=== PATIENT | male | born 2000 | race Caucasian/White ===

== ENCOUNTER 2023-08-23 11:50 | Emergency (ER) | payer SELFPAY ==
[2023-08-23 11:51] VITALS: BP 176/87; PULSE 84; RESP 18; TEMP 36.3; O2SAT 100; BMI 28.2
[2023-08-23 12:16] LABS: Absolute Lymphocyte Count 1.77 X10^3/uL (0.83-4.51); Absolute Neutrophil Count 1.5 X10^3/uL (2.0-7.7); Basophil# 0.02 X10^3/uL; Basophil% 0.5 % (0-1); Eosinophil# 0.08 X10^3/uL; Eosinophils% 2.2 % (0-5); Hematocrit 43.1 % (40-54); Hemoglobin 14.7 g/dL (13.0-16.5); Lymphocyte # 1.77 X10^3/ul (0.83-4.51); Lymphocyte % 48.6 % (19-41); Mean Corp Hgb Conc 34.1 g/dL (32-36); Mean Corpuscular Hgb 29.3 pg (27.0-32.0); Mean Corpuscular Volume 85.9 fL (80-94); Mean Platelet Vol. 9.5 fl (6.2-12.0); Monocyte% 8.2 % (0-10); NRBC Flagged by Analyzer 0 % (0-5); Neutrophil # 1.46 X10^3/uL (2.7-7.7); Neutrophil % 40.2 % (47-70); Platelet Count 250 K/mm3 (150-450); RBC Distribution Width CV 11.9 % (11.6-14.6); RBC Distribution Width SD 37.2 fl (35.1-43.9); Red Blood Count 5.02 M/mm3 (4.6-6.2); White Blood Count 3.6 K/mm3 (4.4-11.0)
[2023-08-23 12:34] LABS: Anion Gap 3 (5-15); BUN 13 mg/dL (7-18); BUN/Creat Ratio 14.2 RATIO (10-20); Calcium,Total 9.5 mg/dL (8.5-10.1); Chloride 107 mmol/L (98-107); Creatinine, Serum 0.91 mg/dL (0.70-1.30); EST Glomerular Filtration Rate 109 mL/min (>60); Est Glom Filt Rate - Afr Amer 132 mL/min (>60); Estimated Creatinine Clearance 126.68 ml/min; Glucose 107 mg/dL (74-106); Potassium 3.7 mmol/L (3.5-5.1); Sodium Level 136 mmol/L (136-145); Troponin-I HS (w/2H Reflex) 5 pg/mL (3.0-78.0)
--- NOTE | 2023-08-23 13:11 | NURSING ---
NO OLD EKGS
--- NOTE | 2023-08-23 13:21 | RAD_ITS ---
STUDY: X-RAY CHEST REASON FOR EXAM: Male, 23 years old. Chest pain TECHNIQUE: Single AP portable view of the chest. COMPARISON: None. FINDINGS: EKG electrodes are seen. The lungs are clear and expanded. There is no demonstrated pleural abnormality. Normal size heart. Normal mediastinum and maggie. Normal visualized pulmonary arteries. Normal visualized aortic arch and descending thoracic aorta. Normal visualized thoracic spine. Normal visualized ribs, clavicles, and shoulders. There is no demonstrated abnormality of the visualized soft tissue structures of the upper abdomen. RAD/Chest 1 View (Portable) IMPRESSION: Normal x-ray examination of the chest. Electronically Signed: Rocco Jurado MD at 14:22 EST ,
[2023-08-23 13:26] VITALS: BP 141/79; PULSE 82; RESP 17; O2SAT 99
[2023-08-23 14:11] LABS: Reflex Troponin-HS? (from REC) Y
--- NOTE | 2023-08-23 14:11 | EDS_ITS ---
HPI History of Present Illness Chief Complaint: Chest Pain Informant: patient Onset/Context/Timing Onset: Today and - (Episodes occurring for last 1-1/2 years.) Activity at onset: sudden Timing: Intermittent Quality: Positive for Aching Location: Substernal Current Severity: Gone Maximum Severity: Moderate Worsened By: Nothing Relieved By: Nothing Associated Symptoms: Negative for Nausea, Vomiting, Diaphoresis, Dyspnea, Cough, Fever, Lightheadedness, Acid Reflux or Palpitations Narrative Narrative: 23-year-old male no seen past medical history. For the last 1 to 2 years has had intermittent episodes where gets chest pain that lasts 5 to 10 seconds. And then goes away. Today had a significant episode at work. First 1 lasted 3 to 5 seconds and then it went away and then it came back stronger and now is resolved. This occurred around 930 this morning. No associated shortness of breath. No fever or chills. No cough. No recent exertional symptoms. No history of DVT or PE. No leg pain or swelling. No hemoptysis. Has had no recent hospitalization. Prior Similar Symptoms: Yes Recent Illness/Hospitalization: No CVD Risk Factors: Negative for Hypertension, Diabetes, Hypercholesterolemia, Family History 1' </=55 or Smoking PE Risk Factors: Negative for Recent Travel/Surgery, Recent Immobilization, Prior DVT or PE, Cancer or OCP + Smoking + >/=35 TAD Risk Factors: Negative for Marfan's Syndrome PFSH PFSH Medical History no medical history Home Medications doxycycline hyclate 100 mg capsule 100 mg PO Q12H #14 caps 12/09/21 [Rx Last Taken Unknown] Allergy/AdvReac Type Severity Reaction Status Date / Time No Known Allergies Allergy Verified 08/23/23 11:50 Family History no significant family his Surgical History History of ankle surgery Surgical History no surgical history Social History Smoking Status: Never smoker Electronic Cigarette Use: with nicotine ROS ROS ED ROS Narrative Intermittent chest pain resolved currently. Review of Systems ROS Unobtainable: Denies due to encephalopathy Constitutional Constitutional ED: Denies chills or fever(s) Eyes Eyes: Reports none ENT ENT ED: Denies ear pain Cardiovascular Cardiovascular: Reports as per HPI and chest pain; Denies palpitations or racing heartbeat Respiratory/Chest Respiratory/Chest: Denies cough or dyspnea Gastrointestinal Gastrointestinal: Denies abdominal pain, constipation, diarrhea, melena, nausea or vomiting Genitourinary Genitourinary ED: Denies dysuria or hematuria Musculoskeletal Musculoskeletal: Denies arthralgias, back pain, myalgias or neck pain Integumentary Denies abscess or Abrasions Psychiatric Psychiatric: Denies anxiety or depression Endocrine Endocrinology: Denies cold intolerance Hematologic/Lymphatic Hematologic/Lymphatic: Denies easy bleeding, easy bruising or lymphadenopathy Allergic/Immunologic Allergic/Immunologic ED: Denies mouth swelling, tongue swelling or urticaria EXAM Physical Exam Narrative Exam Narrative: 23-year-old male vital signs stable afebrile. Pulse ox 100% on room air no signs hypoxia. Initial pressure 176/87. Repeat 141/79. Pain-free. HEENT exam unremarkable. Neck nontender no JVD. Lungs clear to auscultation. Heart regular rhythm no murmur. Rate about 80. Chest wall nontender. Abdomen soft nontender. Moving all 4 extremities. Calves are nontender without edema or cords. Equal symmetrical radial pulses. Neurologically is awake and alert. Back nontender. Benign normal exam. Const Vital Signs: 08/23/23 11:51 08/23/23 13:26 08/23/23 13:26 Temperature 97.3 F L Temperature Source Temporal Pulse Rate 84 82 Respiratory Rate 18 17 Blood Pressure 176/87 H 141/79 H Blood Pressure Mean 116 99 Pulse Ox 100 99 Oxygen Delivery Method Room Air Room Air Room Air Positive well nourished; Negative for cachectic, contractures or unkempt General Appearance ED: NAD; Negative for unkempt, cachectic, contractures or pallor Nutritional Appearance: Negative for cachectic HEENT Reports moist mucous membranes; Denies dry mucous membranes normocephalic and atraumatic; Negative for trauma or tenderness Mouth ED: No dry mucous membranes Mouth: No dry mucous membranes Eyes EOMs intact bilaterally General Eye ED: Negative for pale conjunctiva, scleral icterus or other Neck no lymphadenopathy, supple and no JVD General: Negative for tenderness Chest Wall inspection of chest normal and palpation of chest normal Resp normal respiratory effort and clear to auscultation bilaterally Effort and Inspection: Negative for respiratory distress Auscultation: Negative for rales, rhonchi or wheezes Cardio regular rhythm, S1 normal heart sound, S2 normal heart sound and no murmurs Rate: Negative for bradycardia or tachycardic Rhythm: Negative for abnormal rhythm Peripheral Pulses: pulses 2+ throughout GI normal to inspection, nondistended, normoactive bowel sounds, soft to palpation, non-tender, non-distended and no masses Back/Spine no CVA tenderness and no thoracic nor lumbar tenderness General Back: Negative for CVA tenderness Cervical Spine: Negative for cervical spine tenderness Extremity normal to inspection General Extremety ED: Negative for edema, pulses abnormal or tenderness General Extremity: Negative for edema or pulses abnormal Neuro oriented x3 and CN's II-XII intact bilaterally Sensorium / Orientation: awake, alert, oriented to person, oriented to place and oriented to time; Negative for confused, lethargic or stuporous Motor Exam: strength 5/5 throughout; Negative for general weakness or strength abnormal Psych mental status grossly normal Appearance: Negative for unkempt Attitude: No agitated Mood & Affect: Negative for depressed, anxious or tearful Skin no rashes or lesions noted and no wounds General Skin Exam: Negative for jaundice or pallor Rashes: No rashes noted Trauma: Negative for abrasion, laceration or puncture Heart Score History: Slightly/Non-Suspicious ECG: Normal Age: </= 45 years Risk Factors: No Risk Factors Troponin: </= Normal Limit Score: 0 MDM MDM MDM Narrative Medical decision making narrative: 23-year-old male with atypical nonexertional chest pain with no DVT or PE history or significant risk factors. He is adopted so does not know his family history. Is a normal exam and a normal cardiac workup. His pressures do run high he will need to follow-up with his primary care physician to determine if he needs to be started on blood pressure medication or if this is secondary to whitecoat syndrome. He is in a log of his pressures at home over the next week and follow-up. History & Record Review Discussion w/independent historian: Patient Additional record(s) reviewed:: Prior inpatient record, Prior outpatient record, Prior ED visit and Prior labs Lab Data Attestation: I reviewed the patient's lab results. Lab results narrative: CBC normal. White count of 3 H&H of 14 and 43. Platelets 250. Electrolytes unremarkable gap of 3. Normal BUN and creatinine. Glucose of 107. Troponin of 5. Chest x-ray normal. EKG normal. Labs: Laboratory Results - last 24 hr 08/23/23 12:00 WBC 3.6 L RBC 5.02 Hgb 14.7 Hct 43.1 MCV 85.9 MCH 29.3 MCHC 34.1 RDW Std Deviation 37.2 RDW Coeff of Serena 11.9 Plt Count 250 MPV 9.5 Immature Gran % (Auto) 0.300 Neut % (Auto) 40.2 L Lymph % (Auto) 48.6 H Payette % (Auto) 8.2 Eos % (Auto) 2.2 Baso % (Auto) 0.5 Absolute Neuts (auto) 1.5 L Absolute Lymphs (auto) 1.77 Nucleated RBC % 0 Sodium 136 Potassium 3.7 Chloride 107 Carbon Dioxide 26.0 Anion Gap 3 L BUN 13 Creatinine 0.91 Estim Creat Clear Calc 126.68 Est GFR (MDRD) Af Amer 132 Est GFR (MDRD) Non-Af 109 BUN/Creatinine Ratio 14.2 Glucose 107 H Calcium 9.5 Troponin I High Sens 5 Radiography Chest X-Ray - ED: 1 View, Read by ED Physician, Lungs, Mediastinum, Bony Structures and No Acute Disease Diagnostic Testing: Chest x-ray, portable, single view interpreted by myself shows no acute abnormality. Normal cardiac silhouette. Normal mediastinum. Normal lung cummings. Rhythm Strip Rhythm Strip: Sinus Rhythm Rate: 86 Ectopy: None EKG Initial EKG: Attestation: I personally reviewed and interpreted this EKG as follows: Interpretation: Sinus Rhythm and No Acute Injury Pattern Comments: Normal sinus rhythm rate 86 no acute signs of HI or ischemia. Discharge Plan Triage Chief Complaint: Chest Pain ED Provider: Damián Hernandez Dx/Rx/DC Orders Clinical Impression: Chest pain Instructions: ED Chest Pain, Uncertain Cause Prescriptions: No Action doxycycline hyclate 100 mg capsule 100 mg PO Q12H Qty: 14 0RF Primary Care Provider: Filipe Tovar Referrals: Filipe Tovar MD [Primary Care Provider] - 1-2 Weeks Activity Restrictions/Additional Instructions: No specific cause for your chest pain today. Your EKG, chest x-ray and labs are normal. Does not sound cardiac. Does not sound like a blood clot. It could be spasm of your esophagus Follow-up with your doctor. I would log your blood pressures twice a day when you are calm and relaxed over the next 1 week and then follow-up with your doctor to see if there consistently elevated if so they may need to consider starting you on a blood pressure medication. Disposition Disposition: Home, Self Care
--- OUTSIDE RECORDS SUMMARY | 2023-08-23 15:10 | XMS RPT_ITS | CCD ---
Author Name Unknown Address [facility] [address] [place] [address] Organization [facility] Care Team Providers Care Equipment Cleaner And Tester Name Role Phone KATELIN [facility] Admitting Unavaila nicky THOMASON, [facility] Attending Unavaila nicky THOMASON, [facility] Primary Care Unavaila ble [facility], [facility] Consulting Unavailable PROVIDER, UNKNOWN Consulting Unavailable PROVIDER, UNKNOWN Consulting Unavailable PROVIDER, UNKNOWN Consulting Unavailable Allergies Allergy Classification Reported Allergen(s) Allergy Type Date of Onset Reaction(s) Facility (1 source) 08/09/15 (+) MRSA WOUND; Translations: [08/09/15 (+) MRSA WOUND] Propensity to adverse reactions (disorder) [facility] Repository Results Test Name Value Interpretation Reference Range Facil ity Encounters Encounter Date Encounter Type Care Provider Facility Start: 08-07-2019 End: 08-07-2019 [address] procedure [facility] Summary Purpose Family History No Family History Records FoundNo Family History Records Found Advance Directives No Advanced Directives Records FoundNo Advanced Directives Records Found Additional Source Comments (unrecognized sect ion and content) No Status Records FoundNo Status Records Found INFORMATION SOURCE (unrecogn ized section and content) DATE CREATED AUTHOR AUTHOR'S ORGANIZ ATION 08/07/2019 [facility] FOR RECORDS PERTAINING TO PATIENTS WHO ARE OR HAVE BEEN ENROLLED IN A CHEMICAL DEPENDENCY/SUBSTANCEABUSE PROGRAM, SOME INFORMATION MAY BE OMITTED. This clinical summary was aggregated from multiple sources. Caution should be exercised in using it in the provision of clinical care. This summary normalizes information from multiple sources, and as a consequence, information in this document may materially change the coding, format and clinical context of patient data. In addition, data may be omitted in some cases. CLINICAL DECISIONS SHOULD BE BASED ON THE PRIMARY CLINICAL RECORDS. [facility]. provides no warranty or guarantee of the accuracy or completeness of information in this document.
== END 2023-08-23 14:21 | disposition home or self-care (01) ==
LOC: ED 14:17
PROVIDERS: Emergency Provider Emergency Medicine; PCP Family Medicine; Visit Provider Emergency Medicine
DX: R07.89 Other chest pain (principal); R03.0 Elevated blood-pressure reading, without diagnosis of hypertension; F17.290 Nicotine dependence, other tobacco product, uncomplicated
CPT/HCPCS: 71045; 80048; 84484; 85025; 93005; 99284; A4216